=== PATIENT | female | born 1995 | race American Indian/Alaskan Native ===

== ENCOUNTER 2019-07-19 14:21 | Emergency (ER) | payer SELFPAY ==
[2019-07-19 14:31] VITALS: BP 130/52
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
[2019-07-19 15:49] LABS: Basophils # (Auto) 0.1 K/mm3 (0.0-0.1); Basophils % (Auto) 1.5 % (0.0-1.8); Eosinophils # (Auto) 0.1 K/mm3 (0.0-0.4); Hematocrit 36.6 % (30.3-42.9); Lymphocytes # (Auto) 1.8 K/mm3 (1.2-5.4); Lymphocytes % (Auto) 18.6 % (13.4-35.0); Mean Corpuscular HGB Conc 33 % (30-34); Mean Corpuscular Volume 91 fl (79-97); Monocytes # (Auto) 0.6 K/mm3 (0.0-0.8); Monocytes % (Auto) 6.3 % (0.0-7.3); Platelet Count 418 K/mm3 (140-440); Red Cell Distribution Width 15.2 % (13.2-15.2)
[2019-07-19 16:07] LABS: BUN/Creatinine Ratio 11; Blood Urea Nitrogen 8 mg/dL (7-17); Calcium 9.8 mg/dL (8.4-10.2); Hemolysis Index 5
[2019-07-19 17:21] LABS: HCG Qualitative,Urine Negative (Negative)
[2019-07-19 17:25] LABS: Bilirubin,Urine NEG (Negative); Blood,Urine LG (Negative); Color,Urine Amber (Yellow); Mucus,Urine 2+ /HPF; RBC,Urine > 182.0 /HPF (0.0-6.0); Urobilinogen,Urine < 2.0 mg/dL (<2.0)
== END 2019-07-19 17:38 ==
LOC: ED 14:21
DX: T74.21XA Adult sexual abuse, confirmed, initial encounter (principal); Y07.03 Male partner, perpetrator of maltreatment and neglect
CPT/HCPCS: 36415; 80048; 81001; 81025; 85025; 86689; 86706; 87591; 99283